=== PATIENT | male | born 1970 | race Caucasian/White ===

== ENCOUNTER → 2019-02-28 | Outpatient (CLI) | payer OTHER ==
--- NOTE | 2019-03-01 14:02 | CT ---
EXAM DESCRIPTION: Chest w/Contrast : Computed Tomography. CLINICAL HISTORY: 48 years Male CHEST PAIN. Patient feels a "ropelike" mass along the right side of his chest. Has felt for 5 weeks. COMPARISON: None. TECHNIQUE: Spiral-axial scans at 5 x 5 mm intervals through the lungs and thorax without IV contrast. 2.5 x 5 mm lung algorithm axial reconstructions. Coronal and sagittal 2.0 Mm reconstructions. No adverse reactions. Total Exam DLP: 756.71 mGy-cm. This exam was performed according to our departmental dose-optimization program which includes automated exposure control, adjustment of the mA and/or kV according to patient size and/or use of iterative reconstruction technique; to reduce radiation dose to as low as reasonably achievable (ALARA). Nodule measurements under 10 mm are given as mean value of 3 axes diameters. FINDINGS: Lungs and large airways: Thickening of the fissure on the base of the superior segment of the left lower lobe. Also pleural parenchymal scarring or atelectasis abutting the fissure. Pleural parenchymal scarring also in the inferior lingula and the medial base of the right middle lobe. Posterior dependent atelectasis bilateral lower lobes more right than left. No abnormal nodules or masses. No focal infiltrates. Pleural spaces: Negative. Mediastinum and Olivia: Probable thymic tissue anterior to the ascending aorta but no definite mass. No enlarged lymph nodes. Great vessels and Heart: Atherosclerotic calcifications of the aortic arch. Soft tissues of neck base, axillae, and chest wall: Radiodense markers indicate where patient feels abnormality. No abnormal enhancement, no soft tissue mass, and no calcification. Normal sized lymph nodes. No enhancing low-density nodule in the lower pole of the right thyroid lobe measuring 1.7 cm transverse and 1.2 cm craniocaudal. Similar appearing nodule in the mid and upper right thyroid lobe measuring 2.1 x 1.3 x 1.4 cm. Isthmus and left lobe unremarkable. Upper abdomen: Included peritoneal cavity shows normal density of fat with no free air or fluid. Spleen, included liver, gallbladder, left adrenal gland and pancreas are unremarkable. Questionable small hiatal hernia. 1.3 cm mass in the posterior right adrenal gland, uniform Hounsfield density +12.3 and no significant enhancement or calcification. Surrounding fat unremarkable. Osseous structures: bilateral arthrosis of the AC joints and the left sternoclavicular joint. Fibrocystic change on the greater tuberosity of the right humerus. No bony abnormality anterior right ribs. No lytic or blastic lesions. IMPRESSION: 1. No chest wall mass, edema, calcification, or abnormal contrast enhancement right anterior region of interest. Anterior right ribs are unremarkable. 2. Thickening of the fissure at the base of the superior segment of the left upper lobe and also pleural parenchymal scarring or atelectasis in the left lower lobe and inferior lingula and inferior right middle lobe. No definite infiltrate and no abnormal nodules. 3. 1.7 cm transverse axis nodule in the right thyroid lobe. A second smaller nodule more superior. [facility] Best Practice recommendations: ultrasound follow-up of this incidental thyroid nodule. Please see below*. 4. 1.3 cm homogeneous mass in the right adrenal gland with Hounsfield density +12.3. No focal abnormal enhancement no calcification, and no changes in the surrounding fatty tissue. Most likely an adrenal cyst or adenoma. [facility] Best Practice recommendations: One-year follow-up adrenal washout CT. If stable at 1 year or longer, no further follow-up imaging recommended. *Further evaluation by thyroid US recommended for: -Solitary ITN with high risk imaging features (locally invasive nodule or suspicious lymph nodes) -Solitary ITN of any size in pediatric pts. <= 18 years of age -Solitary ITN >= 1 cm in axial plane in pts. between 18 and 35 years of age -Solitary ITN >= 1.5 cm in axial plane in pts >= 35 years of age. Please see paragraph 3 below. -Heterogeneous enlarged thyroid gland -ITN avid on FDG-PET or other nuclear medicine (MIBI and octreotide) scans. FNA biopsy is also recommended for PET avid nodules. 2.No f/u imaging is recommended for ITNs not meeting the above criteria. 3.For multiple thyroid nodules, the above recommendations for solitary ITN are to be applied to the largest nodule. 4.No US or f/u recommended for ITNs without high risk features in pts. with limited life expectancy or significant co-morbidities, unless clinically warranted. 5.These recommendations do not apply to pts. w/ increased risk for thyroid cancer or pts. with symptomatic thyroid disease. Recommendations for f/u of Incidental Thyroid Nodules (ITN) found on CT, MR, NM and Extrathyroidal US are based upon the ACR white paper and Holland 3-tiered system for managing ITNs: J Am Hank Radiol. 2014;12(2): 143-50 Electronically signed by: Calin Ng MD 03/01/2019 2:00 PM CDT
== END ==
LOC: RAD 12:29
PROVIDERS: ATTEND Nurse Practitioner Family
DX: R07.89 Other chest pain (principal); J98.4 Other disorders of lung; E04.2 Nontoxic multinodular goiter; E27.8 Other specified disorders of adrenal gland

== ENCOUNTER → 2019-03-05 | Outpatient (CLI) | payer OTHER ==
--- NOTE | 2019-03-06 08:20 | US ---
US THYROID CLINICAL STATEMENT: G43.009 MIGRAINE W/O AURA. Thyroid nodule seen on chest CT scan 02/28/2019. No previous thyroid surgery or medical therapy. COMPARISON: CT scan the chest 02/28/2019 TECHNIQUE: Transcutaneous scanning, grayscale and Doppler modes. FINDINGS: Size right thyroid lobe: 5.3 x 2.9 x 2.4 cm Size left thyroid lobe: 4.2 x 1.5 x 1.1 cm Size isthmus: 0.3 cm Estimated total number of nodules greater than or equal to 1 cm: 1 . Heterogeneous right lobe. Nodule 1: Size: 3.4 x 2.9 x 2.3 cm Location: Right Mid Composition: Mixed Echogenicity: hypoechoic: 2 points Shape: wider than tall: 0 points Margins: ill-defined: 0 points. Minimal peripheral vascularity. Echogenic foci: none: 0 points ACR Total Points: 3; ACR TI-RADS risk category: TR3 - mildly suspicious nodule. The soft tissue around the thyroid gland shows no distinct cyst or dominant solid mass. No parenchymal edema or large calcifications. No overlying skin changes. Normal vascularity. IMPRESSION: 1. Nodule 1: ACR TI-RADS 2017 Category TR3. Recommend: Ultrasound-guided fine needle aspiration. Recommendations based upon [facility] Best [facility] recommendations and ACR TI-RADS 2017 guidelines. Please see below*. 2. The soft tissue around the thyroid gland is unremarkable. *ACR TI-RADS 2017 Recommendations: TR1: No FNA or follow up TR2: No FNA or follow up TR3: FNA if >/= 2.5 cm, follow up if 1.5 - 2.4 cm in 1, 3, and 5 years TR4: FNA if >/= 1.5 cm, follow up if 1.0 - 1.4 cm in 1, 2, 3, and 5 years TR5: FNA if >/= 1.0 cm, follow up if 0.5 - 0.9 cm every year for 5 years ACR TI-RADS recommends that no more than two nodules with the highest ACR TI-RADS total point should be biopsied and no more than four nodules should be followed. These recommendations do not apply to patients with increased risk for thyroid cancer or patients with symptomatic thyroid disease. Electronically signed by: Calin Ng MD 03/06/2019 8:18 AM CDT
== END ==
LOC: LAB.O 16:21
PROVIDERS: ATTEND Emergency Medicine
DX: G43.009 Migraine without aura, not intractable, without status migrainosus (principal); R53.83 Other fatigue

== ENCOUNTER → 2019-12-18 | Outpatient (CLI) | payer OTHER ==
--- NOTE | 2019-12-18 11:09 | NM ---
EXAM DESCRIPTION: Hepatobiliar w/CCK: Nuclear Medicine. CLINICAL HISTORY: RUQ ABD PAIN COMPARISON: Ultrasound abdomen radiograph of the abdomen and ultrasound of the thyroid on this visit. TECHNIQUE: Patient was given 8.2 mCi of technetium 99 M mebrofenin (Choletec) radiopharmaceutical IV. Anterior gamma camera images were obtained of the right upper quadrant at 5 minute intervals for one hour . The patient was then given 1.8 mcg CCK IV infusion over 30-minute interval. Gallbladder ejection fraction was evaluated by measuring change in radioactivity in the gallbladder, over 30 min interval. FINDINGS: Almost immediate visualization of the entire liver after administration of radiopharmaceutical. No focal lesions. Timely visualization of the intrahepatic ducts and extrahepatic ducts and gallbladder. Minimal visualization of the small bowel. After CCK infusion began, patient experienced slight abdominal cramping. Activity in the gallbladder declined by 7% at 10 minutes, 90% decline at 20 minutes and 22% decrease in activity at 30 minutes. IMPRESSION: 1. No intrahepatic or extrahepatic biliary obstruction. 2. Abnormally decreased function of the gallbladder, 22% ejection fraction at 30 minutes with low normal ejection fraction 35%. This could represent chronic cholecystitis or gallbladder dyskinesia. Electronically signed by: Calin Ng MD 12/18/2019 11:07 AM BOTTOM STEEP TENDER
--- NOTE | 2019-12-18 14:18 | US ---
EXAM DESCRIPTION: Abdomen,Complete: Ultrasound. CLINICAL HISTORY: 49 years MaleRUQ PAIN COMPARISON: Radionuclide hepatobiliary imaging, ultrasound of the thyroid, and abdominal radiograph today. TECHNIQUE: Transabdominal scanning: grayscale and Doppler modes. FINDINGS: Gallbladder: Normal size. Randolph dependent echogenic stone with posterior shadowing measuring 6.4 mm. Wall thickness 2.0 mm with no fluid. Nontender with transducer pressure. Common bile duct: 5.7 mm normal caliber. Liver: Generalized increased echogenicity. Long axis right lobe 15.6 cm. Ducts normal caliber. Physiologic vascularity. Smooth capsule with no ascites. Pancreas: Normal echogenicity and size. Ducts not visible.. Abdominal aorta: Normal caliber from the proximal segment to the distal bifurcation. IVC: visualized; normal caliber. Spleen normal echogenicity; long axis measurement is 10 cm. Right kidney: 11.6 cm long axis with normal cortical thickness and echogenicity. No echogenic stones or hydronephrosis. Left kidney: 10.9 cm long axis with normal cortical thickness and echogenicity. No echogenic stones or hydronephrosis. IMPRESSION: 1. Cholelithiasis but no nontender with transducer pressure. Common bile duct not dilated. 2. Steatosis of the liver, but otherwise unremarkable. No ascites. Pancreas is negative. 3. Kidneys and spleen are unremarkable. Normal caliber of the IVC and abdominal aorta. Electronically signed by: Calin Ng MD 12/18/2019 2:16 PM PIPE SMOKER MACHINE OPERATOR
--- NOTE | 2019-12-18 14:58 | US ---
US THYROID CLINICAL STATEMENT:49 years Male Nontoxic single thyroid nodule. COMPARISON: Thyroid ultrasound February 2019. TECHNIQUE: Transcutaneous scanning, grayscale and Doppler modes. FINDINGS: Size right thyroid lobe: 5.2 x 2.8 x 2.3 cm Size left thyroid lobe: 3.9 x 1.8 x 1.3 cm Size isthmus: 0.45 cm Estimated total number of nodules greater than or equal to 1 cm: 2 . No distinct cyst or large calcifications in the thyroid parenchyma. Nodule 1: Size: 3.1 x 2.6 x 2.4 cm. 3.4 x 2.9 x 2.3 cm on the prior study. Location: Right Mid Composition: mixed cystic and solid: 1 point. Minimal vascularity. Echogenicity: hypoechoic: 2 points Shape: wider than tall: 0 points Margins: smooth: 0 points Echogenic foci: none: 0 points ACR Total Points: 3; ACR TI-RADS risk category: TR3 - mildly suspicious nodule. Nodule 2: Size: 1.1 x 0.9 x 0.5 cm. This nodule is seen on retrospect on the prior study and stable. Location: Left Mid Composition: solid or almost completely solid: 2 points Echogenicity: hypoechoic: 2 points Shape: wider than tall: 0 points Margins: smooth: 0 points Echogenic foci: none: 0 points ACR Total Points: 4; ACR TI-RADS risk category: TR4 - moderately suspicious nodule. No dominant solid mass, no distinct cyst, no large calcifications in the surrounding soft tissues. No overlying skin changes IMPRESSION: 1. Nodule 1: ACR TI-RADS 2017 Category TR3. Recommend: Ultrasound-guided fine needle aspiration, if not performed at other imaging facility since the prior study.. If biopsy has been performed and results were benign, recommend two-year follow-up. Please see below* Recommendations based upon [facility] Best Practice recommendations and ACR TI-RADS 2017 guidelines. Please see below*. 2. Nodule 2: ACR TI-RADS 2017 Category TR4. Recommend: Follow-up ultrasound in 1 year. 3. Soft tissues around the thyroid gland are unremarkable. *ACR TI-RADS 2017 Recommendations for imaging follow-up of nodules: TR1: No FNA or follow up TR2: No FNA or follow up TR3: FNA if >/= 2.5 cm, follow up if 1.5 - 2.4 cm in 1, 3, and 5 years TR4: FNA if >/= 1.5 cm, follow up if 1.0 - 1.4 cm in 1, 2, 3, and 5 years TR5: FNA if >/= 1.0 cm, follow up if 0.5 - 0.9 cm every year for 5 years ACR TI-RADS recommends that no more than two nodules with the highest ACR TI-RADS total point should be biopsied and no more than four nodules should be followed. These recommendations do not apply to patients with increased risk for thyroid cancer or patients with symptomatic thyroid disease. Electronically signed by: Calin Ng MD 12/18/2019 2:56 PM [facility]
--- NOTE | 2019-12-18 15:11 | RAD ---
EXAM DESCRIPTION: Abdomen Flat Upright: CR/DR/XR. CLINICAL HISTORY: RUQ ABD PAIN COMPARISON: Abdominal ultrasound on this visit. Chest CT scan February 2019.. TECHNIQUE: 3 VIEWS. AP upright lower chest and upper abdomen and AP supine abdomen and pelvis and upright abdomen FINDINGS: Numerous bilateral renal calculi upper and lower poles. 1 collection of stones in the upper collecting system of the left kidney measures 2.5 cm. A single stone or collection of stones in the upper pole of the left kidney measures almost 9 mm. Minimal to moderate amount of fecal matter in the transverse colon. No distended gas-filled segments of bowel. No free air under the diaphragms. No abnormalities in the lung or pleural bases. IMPRESSION: Nephrolithiasis with at least 5 stones in each kidney. Some of the stones are visualized on the inferior images on the chest CT scan in February 2019. Mild constipation transverse colon.. Electronically signed by: Calin Ng MD 12/18/2019 3:10 PM HOT STICK WORKER
== END ==
LOC: US 07:37
PROVIDERS: ATTEND Surgery
DX: N20.0 Calculus of kidney (principal); K80.20 Calculus of gallbladder without cholecystitis without obstruction; K87 Disorders of gallbladder, biliary tract and pancreas in diseases classified elsewhere; K76.0 Fatty (change of) liver, not elsewhere classified; E04.1 Nontoxic single thyroid nodule
CPT/HCPCS: 74019; 76536; 76700; 78227; A9537

== ENCOUNTER 2020-01-04 05:54 | Day surgery (SDC) | payer OTHER ==
--- NOTE | 2019-12-26 16:02 | RAD ---
EXAM DESCRIPTION: Chest,2 Views CLINICAL HISTORY: PREOP EXAM COMPARISON: None TECHNIQUE: PA/lateral FINDINGS: Patchy infiltrate or atelectasis in the lingula. Prominent ascending aorta. Heart size is normal with normal pulmonary vascularity. No pleural effusion or pneumothorax. Lungs are clear with no consolidating infiltrate. Lateral view shows intact sternum and T-spine. IMPRESSION: Patchy atelectasis or infiltrate in the lingula. Electronically signed by: Sahil Garcia MD 12/26/2019 4:00 PM [facility]
[2020-01-04] MEDS ORDERED: PROPOFOL 200 MG/20 ML VIAL IV ONE (07:00)
[2020-01-04] MEDS ORDERED: LIDOCAINE 1% 10 ML VIAL INJ ONE (07:00)
[2020-01-04] MEDS ORDERED: GLYCOPYRROLATE 0.2 MG/ML VIAL ONE (07:00)
[2020-01-04] MEDS ORDERED: KETOROLAC TROMETHAMINE INJ 30 MG/ML VIAL ONE (07:00)
[2020-01-04] MEDS ORDERED: raNITIdine HCL INJ 25 MG/ML VIAL ONE (07:00)
[2020-01-04] MEDS ORDERED: ePHEDrine SULF 50 MG/ML ONE (07:00)
[2020-01-04] MEDS ORDERED: DEXAMETHASONE INJ 10 MG/ML VIAL ONE (07:00)
[2020-01-04] MEDS ORDERED: SODIUM CHLORIDE 0.9% 50 ML VIAL ONE (07:00)
[2020-01-04] MEDS ORDERED: MAGNESIUM SULFATE INJ 1 GM/2 ML VIAL ONE (07:00)
[2020-01-04] MEDS ORDERED: SODIUM CHL 0.9% 100ML MINI-BAG 100 ML IVPB ONE (10:56)
[2020-01-04] MEDS ORDERED: ceFAZolin SODIUM 1 GM VIAL ONE (10:56)
[2020-01-04] MEDS ORDERED: LACTATED RINGERS 1,000 ML ONE ×2 (10:56→13:43)
[2020-01-04] MEDS ORDERED: BUPIVACAINE 0.25% W/EPI 50 ML VIAL INJ ONE (11:18)
[2020-01-04] MEDS ORDERED: HEPARIN SODIUM (PORCINE) 10,000 UNITS/ML VIAL ONE (11:19)
[2020-01-04] MEDS ORDERED: KETAMINE HCL 100 MG/ML VIAL ONE (12:34)
[2020-01-04] MEDS ORDERED: MIDAZOLAM INJ 2 MG/2 ML VIAL ONE (12:35)
[2020-01-04] MEDS ORDERED: ROCURONIUM BROMIDE 10 MG/ML VIAL ONE ×2 (12:35→13:33)
[2020-01-04] MEDS ORDERED: HYDROmorphone HCL INJ 2 MG/ML VIAL ONE (12:49)
[2020-01-04] MEDS ORDERED: HEPARIN SODIUM (PORCINE) 10,000 UNITS/ML VIAL IRRIG ONE (13:20)
[2020-01-04] MEDS ORDERED: BUPIVACAINE 0.25% W/EPI 50 ML VIAL SUBCU ONE (13:20)
[2020-01-04] MEDS ORDERED: SUGAMMADEX SODIUM 200 MG/2 ML VIAL IV ONE (13:33)
[2020-01-04] MEDS ORDERED: ONDANSETRON INJ 4 MG/2 ML VIAL ONE (14:37)
--- NOTE | 2020-01-04 14:39 | OP ---
DATE OF PROCEDURE: 01/04/20 PREOPERATIVE DIAGNOSIS: 1. Symptomatic cholelithiasis. 2. Fatty infiltration of the liver. POSTOPERATIVE DIAGNOSIS: 1. Symptomatic cholelithiasis. 2. Fatty infiltration of the liver. 3. Chronic cholecystitis. PROCEDURE: 1. Laparoscopic cholecystectomy with intraoperative cholangiography using fluoroscopy. 2. Wedge biopsy, right lobe of liver. SURGEON: Vincent Chilel MD. EDUCATOR SENIOR CLINICAL: None. ANESTHESIA: Local infiltration of 0.25% Marcaine with epinephrine and general endotracheal anesthesia. INDICATION: The patient is a 49-year-old male who has had a long history of some abdominal symptomatology that the patient actually associated with reflux. However, he had a significant attack, got a workup which revealed cholelithiasis. He was brought to the Surgical Suite today for cholecystectomy along with wedge biopsy of the right lobe of the liver due to fatty infiltration of the liver identified radiologically. FINDINGS: There was definite fatty infiltration of the liver with pathology pending. The gallbladder was mildly distended with minimally thickened wall. There were gallstones. Intraoperative cholangiography revealed free flow into the duodenum with no filling defects or strictures noted. DESCRIPTION OF PROCEDURE: After the patient was brought to the Surgical Suite and placed in supine position, he underwent general endotracheal anesthesia and was prepped and draped in the usual sterile manner. Surgical time-out was taken. The supraumbilical area was infiltrated with local anesthesia. A vertical incision was made and carried down through the subcutaneous tissue to the midline fascia. Traction sutures were placed on either side of the midline. A small incision was made in the midline fascia and the peritoneum was opened bluntly. Ann trocar was introduced under direct vision into the abdominal cavity and fixed in place with the 20 mL balloon. At this point, CO2 was then insufflated until a pressure of 12 mmHg was reached and the abdomen was tympanitic in all four quadrants. When this was done, the laparoscope was introduced. The abdomen was inspected with the previously noted findings. The patient was then turned to the left side and placed in reverse Trendelenburg position. The upper abdominal ports were placed under direct vision. The gallbladder was grasped, retracted anteriorly and laterally. The triangle of Calot was then explored with the cystic duct and cystic artery identified and isolated. The cystic duct was hemoclipped once proximally. A venous structure was clipped proximally and distally and another arterial vessel was identified and clipped twice. At this point, a small incision was made in the cystic duct. The cholangiogram catheter was introduced through a separate stab wound in the right upper quadrant, introduced into the cystic duct and clipped in place. Cholangiograms were then taken using fluoroscopy which revealed free flow into the duodenum with no filling defects or strictures noted. When this was done, the cystic duct catheter was removed. The cystic duct was hemoclipped three times distally and divided between the hemoclips. The other structures that had been clipped were divided. Another vascular structure was identified, clipped twice and divided using electrocautery. The gallbladder was then dissected free from the gallbladder bed of the liver using electrocautery. There was some leakage of bile from the clip that was placed on the cystic duct. It was placed in an EndoCatch bag and removed from the supraumbilical port site in the usual manner under direct vision. When this was done, the subhepatic space and subphrenic space were irrigated copiously with saline until the effluent was mildly yellow-tinged. The drea hepatis was inspected and no bleeding or bile leak was identified. The gallbladder bed of the liver had good hemostasis was noted there. At this point, wedge biopsy from the right lobe of the liver lateral to the gallbladder bed was done with sharp scissors. Hemostasis was obtained with electrocautery turned up to 50 on coagulation. The specimen was removed, as was the gallbladder once placed in the EndoCatch bag. Both were removed from the supraumbilical port. When this was done, again, the subhepatic space and subphrenic space were irrigated copiously with saline. Again, the drea hepatis revealed no bleeding, no bile leak. The gallbladder bed and the biopsy site were both dry. The last bit of fluid was aspirated. At this point, the upper abdominal ports were removed under direct vision and adequate hemostasis was noted. The CO2, the laparoscope and the supraumbilical port were removed. The supraumbilical port site fascia was approximated with a single [id number] suture of 0 Vicryl. Subcutaneous tissue was irrigated with saline. Skin edges were approximated with 4-0 Vicryl subcuticular sutures, benzoin and Steri-Strips. Sterile dressings were applied. The patient was awakened and taken to the Recovery Room in stable condition. Estimated blood loss was less than 50 mL. All sponge, needle and instrument counts were correct. #[id number] [facility]
[2020-01-04 16:10] VITALS: BP 124/85; TEMP 98.5; O2SAT 95
== END 2020-01-04 16:05 | disposition home or self-care (01) ==
LOC: AMB 05:54
PROVIDERS: ATTEND Surgery
DX: K80.10 Calculus of gallbladder with chronic cholecystitis without obstruction (principal); K76.0 Fatty (change of) liver, not elsewhere classified; I10 Essential (primary) hypertension; G43.909 Migraine, unspecified, not intractable, without status migrainosus; M19.90 Unspecified osteoarthritis, unspecified site; N40.1 Benign prostatic hyperplasia with lower urinary tract symptoms; R35.0 Frequency of micturition; E04.9 Nontoxic goiter, unspecified; Z88.8 Allergy status to other drugs, medicaments and biological substances; Z87.442 Personal history of urinary calculi; Z79.899 Other long term (current) drug therapy
CPT/HCPCS: 00790; 36415; 47001; 47563; 71046; 76000; 80053; 81001; 85025; A4216; J0690; J1100; J1170; J1644; J1885; J2250; J2405; J2780; J3475; J3490; J7050; J7120

== ENCOUNTER → 2020-02-19 | Outpatient (CLI) | payer OTHER ==
--- NOTE | 2020-02-19 10:07 | CT ---
EXAM DESCRIPTION: Abdomen/Pelvis w/wo Contrast CLINICAL HISTORY: 49 years Male, INCISIONAL HERNIA TECHNIQUE: This exam was performed according to our departmental dose-optimization program, which includes automated exposure control, adjustment of the mA and/or kV according to patient size and/or use of iterative reconstruction technique. COMPARISON: None at time of initial interpretation. FINDINGS: Bibasilar volume loss. No focal consolidation or suspicious pulmonary nodule. Hepatic steatosis. No suspicious hepatic lesion. No biliary dilatation. Cholecystectomy. Portal vein is patent. The spleen and pancreas are unremarkable. Right adrenal adenoma measuring 1.4 cm axial image 24. Left adrenal gland is unremarkable. Bilateral nonobstructing nephrolithiasis. The largest left renal calculus measures 1.6 cm. The largest right renal calculus measures 0.7 cm. No obstructing ureteral stone. Soft tissue density along the posterior margin of the bladder lumen which measures 2.1 cm series 6 image 86. This finding may reflect a soft tissue mass in the bladder or prostatic hypertrophy protruding into and indenting the base of the bladder. Scattered colonic diverticula without focal inflammatory change. No evidence of bowel obstruction. No findings to suggest appendicitis. Normal appendix. No adenopathy. No focal fluid collection. No free air. Normal caliber abdominal aorta. Tiny fat-containing periumbilical hernia measuring 1.3 x 1.1 cm.. Left flank intramuscular lipoma measuring 2.4 cm. No acute or suspicious osseous abnormality. Scattered degenerative changes present. IMPRESSION: 1. Tiny fat-containing periumbilical hernia. 2. Bilateral nonobstructing nephrolithiasis. 3. Hepatic steatosis. 4. Soft tissue density along the posterior margin of the bladder lumen measuring 2.1 cm. This finding may reflect a soft tissue mass in the bladder or prostatic hypertrophy protruding into and indenting the base of the bladder. Recommend correlation with physical examination and cystoscopy. Electronically signed by: Joaquín Miguel MD 02/19/2020 10:06 AM CDT
== END ==
LOC: CT 08:18
PROVIDERS: ATTEND Surgery
DX: Z01.812 Encounter for preprocedural laboratory examination (principal); K43.0 Incisional hernia with obstruction, without gangrene; K76.0 Fatty (change of) liver, not elsewhere classified; N20.0 Calculus of kidney; M79.9 Soft tissue disorder, unspecified